=== PATIENT | female | born 1965 | race Caucasian/White ===

== ENCOUNTER 2016-07-25 08:46 | Emergency (ER) | payer MEDICAID ==
[~2016-07-25] VITALS: Ht 152.4 cm; Wt 77.5 kg
[2016-07-25 08:50] VITALS: Ht 152.4 cm; Wt 77.5 kg
[2016-07-25] MEDS ORDERED: ONDANSETRON (ODT) 4 MG TAB ODT STA (09:28)
[2016-07-25] MEDS ORDERED: HYDROCODONE/APAP (5/325) TAB PO ONE (09:30)
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
[2016-07-25] MEDS ORDERED: HYDR-906 PO (10:07)
[2016-07-25] MEDS ORDERED: CYCL-319 PO (10:08)
[2016-07-25] MEDS ORDERED: NAPR-260 PO (10:09)
--- NOTE | 2016-07-25 10:09 | RADRPT ---
PROCEDURE: XR Chest. CLINICAL INDICATION: Chest pain TECHNIQUE: Single frontal view of the chest. COMPARISON: No priorchest radiograph. FINDINGS: The lungs are clear. No pleural effusion or pneumothorax. The cardiomediastinal silhouette is unremarkable. No acute osseous abnormalities. IMPRESSION: No acute abnormalities. RPTAT: AADD .Clayton Chen MD, MD Date Time Electronically viewed and signed by .Clayton Chen MD, on 07/25/2016 10:09 .B/
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
--- NOTE | 2016-07-25 10:09 | RADRPT ---
PROCEDURE: XR Cervical Spine. CLINICAL INDICATION: Neck pain. TECHNIQUE: 3 views of the cervical spine. COMPARISON: None. FINDINGS: Straightening of the cervical lordosis. Vertebral body height is maintained. The intervertebral disc spaces are preserved. The prevertebral soft tissues are normal. No radiopaque foreign bodies are identified. Ossification of the nuchal ligaments is noted. IMPRESSION: No fractures. RPTAT: PP .Clayton Chen MD, MD Date Time Electronically viewed and signed by .Clayton Chen MD, on 07/25/2016 10:08 .B/
[2016-07-25 10:29] VITALS: BP 142/88; PULSE 88; RESP 18; TEMP 98.5
== END 2016-07-25 10:30 | disposition home or self-care (01) ==
LOC: FTE 08:46
DX: S69.91XA Unspecified injury of right wrist, hand and finger(s), initial encounter (principal); V49.50XA Passenger injured in collision with unspecified motor vehicles in traffic accident, initial encounter
CPT/HCPCS: 71010; 72050; 73110; Z7502; Z7610